=== PATIENT | male | born 1950 | race Caucasian/White ===

== ENCOUNTER 2023-06-27 11:19 | Outpatient (CLI) | payer BC | END 2023-06-27 11:20 | disposition home or self-care (01) | LOC: CSHULT 11:19 | PROVIDERS: ATTEND Nurse Practitioner Family | DX: I82.4Z1 Acute embolism and thrombosis of unspecified deep veins of right distal lower extremity (principal); R22.41 Localized swelling, mass and lump, right lower limb ==